=== PATIENT | female | born 1960 | race African-American/Black ===

== ENCOUNTER 2025-04-01 18:25 | Inpatient (IN) | payer MEDICARE, MEDICAID, SELFPAY ==
--- NOTE | 2025-04-01 | ECG_ITS ---
Test Reason : ASSESS QT Blood Pressure : */* mmHG Vent. Rate : 87 BPM Atrial Rate : 87 BPM P-R Int : 160 ms QRS Dur : 90 ms QT Int : 380 ms P-R-T Axes : 33 2 3 degrees QTcB Int : 457 ms Normal sinus rhythm Normal ECG No previous ECGs available Referred By: Chris Garcia Electronically Signed By: DOROTHY COLÓN MD
[2025-04-01 18:37] VITALS: BP 110/82; PULSE 110; O2SAT 95
[2025-04-01 18:38] VITALS: BP 97/56; PULSE 92; RESP 18; TEMP 36.2; O2SAT 96; BMI 28.6
--- NOTE | 2025-04-01 18:41 | MHC.CARE ---
CARE Team received a call from [facility] crisis (Ryan) who reports that Pt was assessed in the community today with a dispo of IPLOC. [facility] reports that Pt resides in a [facility] located in [place] and presents with psychosis, word salad, agiatation/aggression and inability to care. [facility] reports that Pt has been talking in a demonic voice which has actually injured her vocal cords and believes that devils are coming to kill her. [facility] reports that Pt has been verbally aggressive and threatening staff/residents at the and that it appears that Pt missed her last haldol injection. Possible dx of dementia, however [facility] is unsure. [facility] will fax the assessment when complete.
--- NOTE | 2025-04-01 20:09 | ED_ITS ---
HPI - Psych General Chief Complaint: Psychiatric Symptoms Stated Complaint: decompensating mental health Time Seen by Provider: 04/01/25 19:06 History of Present Illness ED Provider: Chris Garcia MD HPI Narrative: [age] female from correction and we will Howard him. She is a poor historian but does acknowledge auditory hallucinations that are non commanding. No SI or HI. She was sent for ?decompensated mental health?. Per triage note the EMS reported that is staff said that ?she believes she is the devil?. Chronic schizoaffective disorder, dementia. She denies any active medical illness or symptoms right now no recent injuries reported Related Data Home Medications ?Medication ?Instructions ?Recorded ?Confirmed acetaminophen 325 mg tablet 650 mg PO Q6H PRN Fever Or Pain 04/02/25 04/02/25 albuterol sulfate 90 mcg/actuation 180 mcg inhalation Q4H PRN SOB 04/02/25 04/02/25 breath activated powder inhaler,sensor aspirin 81 mg tablet 81 mg PO DAILY 04/02/25 04/02/25 benztropine 1 mg tablet 1 mg PO BID 04/02/25 04/02/25 cholecalciferol (vitamin D3) 25 25 mcg PO DAILY 04/02/25 04/02/25 mcg (1,000 unit) tablet clonazepam 0.5 mg tablet 0.5 mg PO DAILY PRN Anxiety 04/02/25 04/02/25 fluticasone furoate 100 1 inh inhalation DAILY MRX1 04/02/25 04/02/25 mcg-vilanterol 25 mcg/dose inhalation powder (Breo Ellipta) haloperidol decanoate 100 mg/mL 100 mg IM Q3W 04/02/25 04/02/25 intramuscular solution melatonin 10 mg capsule 10 mg PO BEDTIME Insomnia 04/02/25 04/02/25 nitrofurantoin 100 mg PO DAILY 04/02/25 04/02/25 monohydrate/macrocrystals 100 mg capsule omeprazole 20 mg capsule,delayed 20 mg PO DAILY 04/02/25 04/02/25 release oxybutynin chloride 10 mg 10 mg PO DAILY 04/02/25 04/02/25 tablet,extended release 24 hr risperidone 4 mg tablet 4 mg PO DAILY 04/02/25 04/02/25 sacubitril 24 mg-valsartan 26 mg 1 tab PO BID 04/02/25 04/02/25 tablet (Entresto) simvastatin 20 mg tablet 20 mg PO BEDTIME 04/02/25 04/02/25 Allergies Allergy/AdvReac Type Severity Reaction Status Date / Time erythromycin base Allergy Anaphylaxis Verified 04/01/25 18:45 [facility] Social History Social History Household Members: Other Household Members Other:: correction with one other person Housing: House Do you presently have visiting nurse or other home services: No Patient Tobacco Use Status: Current everyday Tobacco user Tobacco use type: Cigarette Cigarette Packs Per Day: 0.25 Cigarettes Per Day: 5.0 Smoked in Last 30 Days: Yes e-Cigarette/Vaping Use: Currently Using Patient Interested in Nicotine Replacement: Yes Patient Given Instructions on How to Stop Smoking: No Second Hand Smoke Exposure: No Currently Displaying Signs/Symptoms of Drug Intoxication Withdrawal: No Have you been hit, kicked, punched, or otherwise hurt by someone within the past year? If so, by whom?: No Do you feel safe in your current relationship?: No Current Relationship Is there a partner from a previous relationship who is making you feel unsafe now?: No Are you made to feel afraid or neglected: No Advance Directives: No Advance Directives Information Provided: No Do you have thoughts of harming others: None Do you have a plan to hurt others: No Plan Recently lost weight without trying: No How much weight loss: Not applicable Eating poorly because of decreased appetite: No Nutrition screen score: 0 Nutrition Risks: No Nutritional Risk Patient : No : No Poor oral hygiene: Yes Physical Exam 2 Vital Signs: Vital Signs: Last Vital Signs Temp 98.3 F 04/02/25 20:00 Pulse 65 04/02/25 20:00 Resp 18 04/02/25 20:00 BP 153/94 H 04/02/25 20:00 Pulse Ox 94 04/02/25 20:00 O2 Del Method Room Air 04/02/25 20:00 BMI result Body Mass Index 28.6 Const: Other: EXAM: Gen: Alert, awake, well appearing, well hydrated. Patient has some evidence of facial tardive dyskinesia. She is occasionally tangential and laughs inappropriately. She acknowledges auditory hallucinations but does not appear to be responding to them actively during my evaluation. She is clean and well- kempt her hair is done nicely and she is not profoundly disorganized or aggressive Head: Atraumatic Eyes: Anicteric, Normal conjunctiva. ENT: Moist mucosa, no pallor. ? Neck: Supple. Skin: ?No observable rash or bruising on exposed or examined skin Respiratory: Breathing comfortably, No distress.Clear to auscultation bilaterally, symmetric chest expansion, No wheeze, rales, ronchi. Cardiovascular: Regular rate and rhythm. No murmurs or rub. Well perfused periphery, warm extremities. No edema. ? Abdominal: No FOCAL TENDERNESS. Soft, no objective distension. No palpable masses or obvious organomegaly. ?No guarding, no rebound tenderness or other peritoneal findings. Obese : No flank tenderness. Neuro: Alert. Gross movement of all extremities intact. ? Psych: Calm. Cooperative. AH. Chronic auditory hallucinations not commanding. No SI or HI MSK: No grossly visible deformity. Vital signs: See flowsheet Course Course Course Narrative: 08:40I, Dr. Cardona have take over the care of this patient, I reviewed pertinent blood work and imaging, re-evaluated the patient when appropriate. I have ordered patient's regular medications upon request from Behavioral team. Medications Administered Generic Name Dose Route Start Last Admin Trade Name Freq PRN Reason Stop Dose Admin Acetaminophen 650 mg 04/02/25 13:28 04/02/25 20:55 Acetaminophen 325 Mg Tablet PO 650 mg Q6H PRN Administration Headache/Pain, Scale 1-10 Aspirin 81 mg 04/02/25 09:30 04/02/25 10:18 Aspirin 81 Mg Tab.Chew PO 81 mg DAILY KUSHAL Administration Atorvastatin Calcium 10 mg 04/02/25 09:30 04/02/25 10:18 Atorvastatin Calcium 10 Mg Tablet PO 10 mg DAILY KUSHAL Administration Benztropine Mesylate 1 mg 04/02/25 09:00 04/02/25 20:49 Benztropine Mesylate 1 Mg Tablet PO 1 mg BID KUSHAL Administration Fluticasone/Vilanterol 1 puff 04/02/25 10:00 04/02/25 13:51 Fluticasone/Vilanterol /25 Blst.W.Dev INHALE Not Given RDAILY KUSHAL Haloperidol 5 mg 04/02/25 15:15 04/03/25 00:27 Haloperidol 5 Mg Tablet PO 5 mg Q4H PRN Administration agitation Lorazepam 2 mg 04/02/25 15:15 04/03/25 00:27 Lorazepam 1 Mg Tablet PO 2 mg Q4H PRN Administration agitation Melatonin 9 mg 04/02/25 09:21 04/02/25 20:54 Melatonin 3 Mg Tablet PO 9 mg BEDTIME PRN Administration Insomnia Nitrofurantoin Macrocrystals 100 mg 04/02/25 10:00 04/02/25 10:18 Nitrofurantoin Monohyd/M-Cryst 100 Mg Capsule PO 100 mg DAILY KUSHAL Administration Omeprazole 20 mg 04/02/25 09:30 04/02/25 10:18 Omeprazole 20 Mg Capsule.Dr PO 20 mg DAILY@0630 KUSHAL Administration Oxybutynin Chloride 10 mg 04/02/25 09:00 04/02/25 10:17 Oxybutynin Chloride Er 5 Mg Tab.Er.24 PO 10 mg DAILY KUSHAL Administration Risperidone 4 mg 04/02/25 09:00 04/02/25 10:17 Risperidone 2 Mg Tablet PO 4 mg DAILY KUSHAL Administration Sacubitril/Valsartan 1 tab 04/02/25 09:00 04/02/25 20:49 Sacubitril/Valsartan 1 Tab Tablet PO 1 tab BID KUSHAL Administration Protocol Vitamin D 25 mcg 04/02/25 09:00 04/02/25 10:17 Cholecalciferol (Vitamin D3) 25 Mcg Tablet PO 25 mcg DAILY KUSHAL Administration Discontinued Medications Generic Name Dose Route Start Last Admin Trade Name Freq PRN Reason Stop Dose Admin Acetaminophen 650 mg 04/01/25 23:48 04/01/25 23:51 Acetaminophen 325 Mg Tablet PO 04/01/25 23:49 650 mg ONCE ONE Administration Ibuprofen 600 mg 04/01/25 21:24 04/01/25 21:32 Ibuprofen 600 Mg Tablet PO 04/01/25 21:25 600 mg ONCE ONE Administration Ibuprofen 600 mg 04/02/25 06:18 04/02/25 06:29 Ibuprofen 600 Mg Tablet PO 04/02/25 06:19 600 mg ONCE ONE Administration Melatonin 9 mg 04/02/25 00:02 04/02/25 00:15 Melatonin 3 Mg Tablet PO 04/02/25 00:03 9 mg ONCE ONE Administration Nicotine 14 mg 04/02/25 09:03 04/02/25 10:17 Nicotine 14 Mg Patch.Td24 TRANSDERMA 04/02/25 09:04 14 mg ONCE ONE Administration Medical Decision Making Medical Decision Making MDM Narrative: 64-year-old female with worsening psychiatric symptoms and auditory hallucinations. Patient has had a correction likely needs inpatient psychiatric No acute medical emergency identified on lab work or physical examination Differential Diagnosis Differential Diagnoses: The differential diagnosis associated with the presentation includes Decompensated psychiatric disorder, less likely encephalopathy metabolic derangement Consult Healthcare Provider Management of the patient was discussed with: Behavioral Health Provider (Care team) Lab Data [facility] Lab Attestation statement: I reviewed the patient's lab results. 04/01/25 20:51 04/01/25 20:51 Labs: Lab Results 04/01/25 04/01/25 Range/Units 20:51 20:52 WBC 5.8 (4.8-10.8) X10*3/uL RBC 3.91 L (4.20-5.50) X10*6/uL Hgb 11.7 L (12.0-16.0) g/dl Hct 35.2 L (37.0-47.0) % MCV 90.0 (80.0-98.0) fL MCH 29.9 (27.0-33.0) pg MCHC 33.2 (31.0-35.0) g/dl RDW 15.4 (11.0-16.0) % Plt Count 304 (160-400) X10*3/uL MPV 8.6 L (9.4-12.3) fL Immature Gran % (Auto) 0.3 (0.0-0.4) % Neut % (Auto) 50.0 (45-73) % Lymph % (Auto) 37.5 (20-40) % [place] % (Auto) 8.1 (2-11) % Eos % (Auto) 3.6 (0-4) % Baso % (Auto) 0.5 (0-2) % Lymph # (Auto) 2.2 (1.2-4.9) X10*3/uL [place] # (Auto) 0.5 (0.1-1.2) X10*3/uL Eos # (Auto) 0.2 (0.0-0.4) X10*3/uL Baso # (Auto) 0.0 (0.0-0.2) X10*3/uL Abs Immat Gran (auto) 0.02 (0.00-0.03) X10*3/uL Absolute Neuts (auto) 2.9 (2.0-8.3) x10*3/uL Absolute Nucleated RBC 0.000 (0.0-0.012) X10*3/uL Nucleated RBC % (auto) 0.0 (0.0-0.2) /100WBC Sodium 141 (135-145) mmol/L Potassium 4.3 (3.3-5.1) mmol/L Chloride 108 (96-108) mmol/L Carbon Dioxide 26 (22-29) mmol/L Anion Gap 11 L (12-20) BUN 9 (9-16) mg/dL Creatinine 0.75 (0.5-1.4) mg/dL Estim Creat Clear Calc 80.2 Estimated GFR > 60 Random Glucose 91 (60-115) mg/dL Calcium 9.3 (8.4-10.2) mg/dL Total Bilirubin 0.2 (0.0-1.0) mg/dL AST 40 H (5-31) U/L ALT 50 H (0-31) U/L Alkaline Phosphatase 70 (39-117) U/L Total Protein 7.0 (6.5-8.0) g/dL Albumin 4.5 (3.5-5.0) g/dL Urine Color Yellow Urine Appearance Clear Urine pH 6.5 (5.0-9.0) Ur Specific [place] 1.010 (1.005-1.025) Urine Protein Negative (Neg-Trace) mg/dL Urine Glucose (UA) Negative (Negative) mg/dL Urine Ketones Negative (Negative) mg/dL Urine Blood Negative (Negative) Urine Nitrite Negative (Negative) Ur Leukocyte Esterase Trace H (Negative) Urine RBC 0-2 (0-2) /HPF Urine WBC 0-5 (0-5) /HPF Ur Squamous Epith Cells 3-5 (0-2) /HPF Urine Bacteria None Seen (None Seen) Hyaline Casts 0-2 (0-2) /LPF Urine Opiates Screen Not Detected (Not Detect) Ur Buprenorphine Scrn Not Detected (Not Detect) ng/mL Ur Oxycodone Screen Not Detected (Not Detect) ng/mL Urine Methadone Screen Not Detected (Not Detect) ng/mL Urine Fentanyl Screen Not Detected (Not Detect) Ur Barbiturates Screen Not Detected (Not Detect) Ur Phencyclidine Scrn Not Detected (Not Detect) Ur Amphetamines Screen Not Detected (Not Detect) U Benzodiazepines Scrn Not Detected (Not Detect) Urine Cocaine Screen Not Detected (Not Detect) U Marijuana (THC) Screen Not Detected (Not Detect) Ethyl Alcohol 12 mg/dL Discharge Plan Discharge Clinical Impression: Psychiatric symptoms Patient Disposition: Admitted As Inpatient Discharge Date/Time: 04/02/25 14:56
--- NOTE | 2025-04-01 20:41 | PC.NURSE ---
patient at rest upon t/w's arrival to unit client awakened to ask about sisters phone call to inquire about status which t/w was unab;e to confirm regarding ability to confirm information, patient didnt seem to want to answer when t/w queried.
[2025-04-01 20:59] LABS: MANUAL DIFF FLAG NO
[2025-04-01 21:01] LABS: Basophils Percent Auto 0.5 % (0-2); Eosinophils Absolute Auto 0.2 X10*3/uL (0.0-0.4); Eosinophils Percent Auto 3.6 % (0-4); Hematocrit 35.2 % (37.0-47.0); Hemoglobin 11.7 g/dl (12.0-16.0); Imm Gran Abs Auto 0.02 X10*3/uL (0.00-0.03); Imm Gran Pct Auto 0.3 % (0.0-0.4); Lymphocytes Absolute Auto 2.2 X10*3/uL (1.2-4.9); Lymphocytes Percent Auto 37.5 % (20-40); Mean Corpuscular HGB Conc 33.2 g/dl (31.0-35.0); Mean Corpuscular Hemoglobin 29.9 pg (27.0-33.0); Mean Platelet Volume 8.6 fL (9.4-12.3); Monocytes Absolute Auto 0.5 X10*3/uL (0.1-1.2); Monocytes Percent Auto 8.1 % (2-11); Neutrophils Absolute Auto 2.9 x10*3/uL (2.0-8.3); Platelet Count 304 X10*3/uL (160-400); Red Blood Count 3.91 X10*6/uL (4.20-5.50); Red Cell Distribution Width 15.4 % (11.0-16.0); White Blood Count 5.8 X10*3/uL (4.8-10.8)
[2025-04-01 21:10] LABS: Appearance Urine Clear; Color Urine Yellow; Glucose Urine UA Negative (Negative); Leukocyte Esterase Urine Trace (Negative); Nitrite Urine Negative (Negative); PH 6.5 (5.0-9.0); UMIC TRIGGER UA YES; Urine Blood Negative (Negative); Urine Ketones Negative (Negative); Urine Protein Negative (Neg-Trace)
[2025-04-01 21:16] LABS: Alanine Aminotransferase 50 U/L (0-31); Albumin Level 4.5 g/dL (3.5-5.0); Alkaline Phosphatase 70 U/L (39-117); Anion Gap 11 (12-20); Aspartate Amino Transferase 40 U/L (5-31); Bilirubin Total 0.2 mg/dL (0.0-1.0); Blood Urea Nitrogen 9 mg/dL (9-16); Calcium 9.3 mg/dL (8.4-10.2); Carbon Dioxide 26 mmol/L (22-29); Chloride 108 mmol/L (96-108); Creatinine Clr Calc Pharmacy 80.2; Estimated Glomerular Filt Rate > 60; Ethanol 12 mg/dL; Glucose Random 91 mg/dL (60-115); Potassium 4.3 mmol/L (3.3-5.1); Sodium 141 mmol/L (135-145)
[2025-04-01 21:21] LABS: Amphetamine Screen Urine Not Detected (Not Detect); Barbiturates, Urine Not Detected (Not Detect); Benzodiazepines Screen Urine Not Detected (Not Detect); Buprenorphine Scr Not Detected (Not Detect); Cannabinoid Screen Urine Not Detected (Not Detect); Cocaine Screen Urine Not Detected (Not Detect); Fentanyl, urine Not Detected (Not Detect); Methadone Screen, Urine Not Detected (Not Detect); Opiate Screen Urine Not Detected (Not Detect); Oxycodone Screen Urine Not Detected (Not Detect); Phencyclidine Screen Urine Not Detected (Not Detect)
[2025-04-01] MEDS: Ibuprofen 600 MG TABLET PO (21:32)
[2025-04-01 21:40] LABS: Bacteria Urine None Seen (None Seen); Hyaline Casts Urine 0-2 /LPF (0-2); RBC Urine 0-2 /HPF (0-2); WBC Urine 0-5 /HPF (0-5)
[2025-04-01] MEDS: Acetaminophen 325 MG TABLET 650 MG PO (23:51)
[2025-04-02] MEDS: Melatonin 3 MG TABLET 9 MG PO ×2 (00:15→20:54)
--- NOTE | 2025-04-02 01:27 | PC.NURSE ---
spoke to sister who is (per sister) HCP and POA asked about disposition and left phone number Mary Liu [phone]
--- NOTE | 2025-04-02 03:53 | PC.NURSE ---
client experiencing broken sleep tonight
[2025-04-02 05:03] VITALS: BP 142/92; PULSE 90; RESP 18; TEMP 36.6; O2SAT 98
--- NOTE | 2025-04-02 05:36 | PC.NURSE ---
patient singing then requesting tea
[2025-04-02] MEDS: Ibuprofen 600 MG TABLET PO (06:29)
--- NOTE | 2025-04-02 08:28 | PC.NURSE ---
Patient soiled self, staff helped patient to bathroom, patient refused a shower but will use wash cloth with body wash to clean self up. Patient repeatidly asking to go home and states she does not want to stay here. Staff helped patient get a list of phone numbers from her bag, redirectable, calm and cooperative at this time
--- NOTE | 2025-04-02 09:13 | PHA.MEDREC ---
Pharmacy Consult ? Medication Reconciliation Pharmacy has reviewed the medication reconciliation done by nursing.
--- NOTE | 2025-04-02 09:21 | PC.NURSE ---
Spoke with Charleen Avalos, sas statistical programmer from [facility], patient last got IM injection of haloperidol dec 100 mg on 03/18/25
[2025-04-02 10:17] VITALS: BP 142/92
[2025-04-02] MEDS: oxyBUTYnin chloride ER 5 MG TAB.ER.24 10 MG PO (10:17)
[2025-04-02] MEDS: Nicotine 14 MG PATCH.TD24 TRANSDERMA (10:17)
[2025-04-02] MEDS: Cholecalciferol (Vitamin D3) 25 MCG TABLET PO (10:17)
[2025-04-02] MEDS: Sacubitril/Valsartan 24/26 1 TAB TABLET PO ×2 (10:17→20:49)
[2025-04-02] MEDS: risperiDONE 2 MG TABLET 4 MG PO (10:17)
[2025-04-02] MEDS: Atorvastatin Calcium 10 MG TABLET PO (10:18)
[2025-04-02] MEDS: Nitrofurantoin Monohyd/M-Cryst 100 MG CAPSULE PO (10:18)
[2025-04-02] MEDS: Benztropine Mesylate 1 MG TABLET PO ×2 (10:18→20:49)
[2025-04-02] MEDS: Omeprazole 20 MG CAPSULE.DR PO (10:18)
[2025-04-02] MEDS: Aspirin 81 MG TAB.CHEW PO (10:18)
--- NOTE | 2025-04-02 11:34 | PC.NURSE ---
Sister on the phone (cuba [phone]), states her outpatient psychiatrist wanted to increase her sisters dosages of psych meds after a zoom appointment yesteday, sister states she does not want any of the new orders given until patient is seen by [facility] psychiatry during admission
[2025-04-02 14:32] VITALS: BP 154/88; PULSE 90; RESP 16; TEMP 36.4; O2SAT 96
[2025-04-02 15:00] VITALS: BMI 28.0
[2025-04-02 16:00] VITALS: BP 155/90; PULSE 95; TEMP 36.4; O2SAT 95
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
[2025-04-02 20:00] VITALS: BP 153/94; PULSE 65; RESP 18; TEMP 36.8; O2SAT 94
[2025-04-02] MEDS: Acetaminophen 325 MG TABLET 650 MG PO (20:55)
[2025-04-03] MEDS: LORazepam 1 MG TABLET 2 MG PO ×3 (00:27→20:43)
[2025-04-03] MEDS: HaloperidoL 5 MG TABLET PO ×3 (00:27→20:43)
[2025-04-03] MEDS: Omeprazole 20 MG CAPSULE.DR PO (06:07)
[2025-04-03 08:08] VITALS: BP 117/61; PULSE 81; TEMP 36.6; O2SAT 94
[2025-04-03 09:10] LABS: Estimated Average Glucose 126 mg/dL; Hemoglobin A1C 149.5112 umol/L
[2025-04-03 09:20] LABS: Alanine Aminotransferase 50 U/L (0-31); Albumin Level 4.3 g/dL (3.5-5.0); Alkaline Phosphatase 73 U/L (39-117); Anion Gap 12 (12-20); Aspartate Amino Transferase 32 U/L (5-31); Bilirubin Total 0.2 mg/dL (0.0-1.0); Blood Urea Nitrogen 14 mg/dL (9-16); Calcium 10.1 mg/dL (8.4-10.2); Carbon Dioxide 27 mmol/L (22-29); Chloride 107 mmol/L (96-108); Cholesterol 162 mg/dL (<200); Creatinine Clr Calc Pharmacy 86.3; Estimated Glomerular Filt Rate > 60; Glucose Random 125 mg/dL (60-115); HDL Cholesterol 45 mg/dL (>40); LDL Cholesterol Calculated 98 mg/dL (<100); Potassium 4.6 mmol/L (3.3-5.1); Sodium 141 mmol/L (135-145); Total Protein 6.9 g/dL (6.5-8.0); Triglycerides 96 mg/dL (<150)
[2025-04-03] MEDS: risperiDONE 2 MG TABLET 4 MG PO (09:27)
[2025-04-03 09:28] VITALS: BP 120/68
[2025-04-03] MEDS: Sacubitril/Valsartan 24/26 1 TAB TABLET PO ×2 (09:28→20:43)
[2025-04-03] MEDS: Benztropine Mesylate 1 MG TABLET PO ×2 (09:28→20:44)
[2025-04-03] MEDS: oxyBUTYnin chloride ER 5 MG TAB.ER.24 10 MG PO (09:29)
[2025-04-03] MEDS: Nitrofurantoin Monohyd/M-Cryst 100 MG CAPSULE PO (09:30)
[2025-04-03] MEDS: Aspirin 81 MG TAB.CHEW PO (09:30)
[2025-04-03] MEDS: Cholecalciferol (Vitamin D3) 25 MCG TABLET PO (09:30)
[2025-04-03] MEDS: Atorvastatin Calcium 10 MG TABLET PO (09:30)
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
[2025-04-03] MEDS: Fluticasone/Vilanterol 100/25 BLST.W.DEV 1 PUFF INHALE (11:28)
[2025-04-03] MEDS: Acetaminophen 325 MG TABLET 650 MG PO ×2 (12:58→20:44)
[2025-04-03 20:00] VITALS: BP 164/121; PULSE 100; RESP 16; TEMP 36.4; O2SAT 97
[2025-04-03 20:43] VITALS: BP 164/121
[2025-04-03] MEDS: Nicotine Polacrilex Lozenge 4 MG LOZENGE BUCCAL (21:15)
[2025-04-04] MEDS: Nicotine Polacrilex Lozenge 4 MG LOZENGE BUCCAL ×2 (05:20→10:31)
[2025-04-04] MEDS: Omeprazole 20 MG CAPSULE.DR PO (06:17)
[2025-04-04] MEDS: risperiDONE 2 MG TABLET 4 MG PO (08:24)
[2025-04-04] MEDS: Fluticasone/Vilanterol 100/25 BLST.W.DEV 1 PUFF INHALE (08:24)
[2025-04-04 08:25] VITALS: BP 121/88
[2025-04-04] MEDS: Sacubitril/Valsartan 24/26 1 TAB TABLET PO ×2 (08:25→20:15)
[2025-04-04] MEDS: oxyBUTYnin chloride ER 5 MG TAB.ER.24 10 MG PO (08:25)
[2025-04-04] MEDS: Benztropine Mesylate 1 MG TABLET PO ×2 (08:25→20:15)
[2025-04-04] MEDS: Cholecalciferol (Vitamin D3) 25 MCG TABLET PO (08:25)
[2025-04-04] MEDS: Nitrofurantoin Monohyd/M-Cryst 100 MG CAPSULE PO (08:26)
[2025-04-04] MEDS: Atorvastatin Calcium 10 MG TABLET PO (08:26)
[2025-04-04] MEDS: Aspirin 81 MG TAB.CHEW PO (08:26)
[2025-04-04] MEDS: Acetaminophen 325 MG TABLET 650 MG PO ×3 (08:26→21:01)
--- NOTE | 2025-04-04 08:32 | HO.PSYCHPN ---
Subjective Subjective Date of Service: 04/04/25 Reason For Visit: manic Interim History: Met with patient; discussed with team Patient remains calm, pleasant and cooperative; in organized behavior with good impulse control; seems to be at baseline. She remains focused on when she can discharge but accepts that this will be best discussed with her outpatient team on Saturday. She does not want to miss her appointment to get her dentures. Denies psychiatric symptoms; Remains frequently talking to herself and internally preoccupied. Patient's brother came for a visit and reports that patient appears to be at her baseline. Mental Status Exam Mental Status Exam Narrative: Pt is alert and oriented; behavior is cooperative, friendly and calm; patient is not in distress; dressed in casual attire with adequate hygiene; mood is described as good and affect congruent; eye contact appropriate; Speech is normal rate, volume and prosody and not pressured; no psychomotor agitation/retardation present; thought process is goal directed; Thought content is on discharge, not missing outpatient appointments; otherwise pertinent to relevant topics and without any delusional content, paranoid ideations or grandiosity; denies any SI/HI. Denies AVH however patient clearly internally preoccupied and having conversations with herself summary Patients insight and judgment impaired but at baseline. Diagnostics Vital Signs (24Hr): Vital Signs - 24 hr 04/03/25 09:28 04/03/25 20:00 04/03/25 20:43 Temperature 97.5 F Pulse Rate 100 Respiratory Rate 16 Blood Pressure 120/68 164/121 H 164/121 H Pulse Oximetry 97 Oxygen Delivery Method Room Air 04/04/25 08:25 Temperature Pulse Rate Respiratory Rate Blood Pressure 121/88 Pulse Oximetry Oxygen Delivery Method BMI result Body Mass Index 28.0 Labs 04/01/25 20:51 04/03/25 08:15 Labs: Laboratory Results - last 48 hr 04/03/25 08:15 Sodium 141 Potassium 4.6 Chloride 107 Carbon Dioxide 27 Anion Gap 12 BUN 14 Creatinine 0.69 Estim Creat Clear Calc 86.3 Estimated GFR > 60 Random Glucose 125 H Estimat Average Glucose 126 Hemoglobin A1c % 6.0 Calcium 10.1 D Total Bilirubin 0.2 AST 32 H ALT 50 H Alkaline Phosphatase 73 Total Protein 6.9 Albumin 4.3 Triglycerides 96 Cholesterol 162 LDL Cholesterol, Calc 98 HDL Cholesterol 45 Medications Medications Current Medications Acetaminophen (Acetaminophen 325 Mg Tablet) 650 mg PO Q6H PRN PRN Reason: Headache/Pain, Scale 1-10 Last Admin: 04/04/25 08:26 Dose: 650 mg Al Hydroxide/Mg Hydroxide (Magnesium Hydrox/Alum Hydrox 30 Ml Oral.Susp) 30 ml PO Q6H PRN PRN Reason: Heartburn/Nausea Albuterol Sulfate (Albuterol Sulfate 90 Mcg 8 Gm Inhaler) 2 puff INHALE Q4H PRN PRN Reason: Shortness of Breath Aspirin (Aspirin 81 Mg Tab.Chew) 81 mg PO DAILY [facility] Last Admin: 04/04/25 08:26 Dose: 81 mg Atorvastatin Calcium (Atorvastatin Calcium 10 Mg Tablet) 10 mg PO DAILY [facility] Last Admin: 04/04/25 08:26 Dose: 10 mg Benztropine Mesylate (Benztropine Mesylate 1 Mg Tablet) 1 mg PO BID [facility] Last Admin: 04/04/25 08:25 Dose: 1 mg Clonazepam (Clonazepam 0.5 Mg Tablet) 0.5 mg PO DAILY PRN PRN Reason: Anxiety Fluticasone/Vilanterol (Fluticasone/Vilanterol 100/25 Blst.W.Dev) 1 puff INHALE RDAILY [facility] Last Admin: 04/04/25 08:24 Dose: 1 puff Haloperidol (Haloperidol 5 Mg Tablet) 5 mg PO Q4H PRN PRN Reason: agitation Last Admin: 04/03/25 20:43 Dose: 5 mg Haloperidol Decanoate (Haloperidol Decanoate 50 Mg/Ml Vial) 100 mg IM Q21D [facility] Lorazepam (Lorazepam 1 Mg Tablet) 2 mg PO Q4H PRN PRN Reason: agitation Last Admin: 04/03/25 20:43 Dose: 2 mg Magnesium Hydroxide (Milk Of Magnesia 30 Ml Oral.Susp) 30 ml PO DAILY PRN PRN Reason: Constipation Melatonin (Melatonin 3 Mg Tablet) 9 mg PO BEDTIME PRN PRN Reason: Insomnia Last Admin: 04/02/25 20:54 Dose: 9 mg Nicotine (Nicotine 21 Mg Patch.Td24) 21 mg TRANSDERMA DAILY PRN PRN Reason: smoking cessation Nicotine Polacrilex (Nicotine Polacrilex Lozenge 4 Mg Lozenge) 4 mg BUCCAL Q2H PRN PRN Reason: Nicotine Cravings Last Admin: 04/04/25 05:20 Dose: 4 mg Nitrofurantoin Macrocrystals (Nitrofurantoin Monohyd/M-Cryst 100 Mg Capsule) 100 mg PO DAILY [facility] Last Admin: 04/04/25 08:26 Dose: 100 mg Omeprazole (Omeprazole 20 Mg Capsule.Dr) 20 mg PO DAILY@0630 [facility] Last Admin: 04/04/25 06:17 Dose: 20 mg Oxybutynin Chloride (Oxybutynin Chloride Er 5 Mg Tab.Er.24) 10 mg PO DAILY [facility] Last Admin: 04/04/25 08:25 Dose: 10 mg Risperidone (Risperidone 2 Mg Tablet) 4 mg PO DAILY [facility] Last Admin: 04/04/25 08:24 Dose: 4 mg Sacubitril/Valsartan (Sacubitril/Valsartan 1 Tab Tablet) 1 tab PO BID [facility]; Protocol Last Admin: 04/04/25 08:25 Dose: 1 tab Trazodone HCl (Trazodone Hcl 50 Mg Tablet) 50 mg PO BEDTIME MRX1 PRN PRN Reason: Insomnia Vitamin D (Cholecalciferol (Vitamin D3) 25 Mcg Tablet) 25 mcg PO DAILY [facility] Last Admin: 04/04/25 08:25 Dose: 25 mcg Allergies Allergies Allergy/AdvReac Type Severity Reaction Status Date / Time erythromycin base Allergy Anaphylaxis Verified 04/01/25 18:45 Assessment & Plan Assessment & Plan (1) Schizoaffective disorder, bipolar type: Status: Acute Code(s): F25.0 - Schizoaffective disorder, bipolar type (2) TBI (traumatic brain injury): Status: Acute Code(s): S06.9XAA - Unspecified intracranial injury with loss of consciousness status unknown, initial encounter Plan Patient is a 64-year-old female with history of schizoaffective disorder bipolar type, COPD, CHF, hypertension, overactive bladder, TBI with healthcare proxy/guardian who lives in a alf who presents for manic and threatening behaviors. Per ED notes, patient became widely psychotic and disorganized, not making sense, highly agitated and threatening both staff and peers at the alf. On admission, it seems that manic episode has resolved and patient pleasant, cooperative and overall organized speech and behavior. She says she is not sure why she is at the hospital and unaware of circumstances even after documentation writer explains; she is amenable to treatment, but Hoping to go home soon. Patient denies any drug or alcohol use saying she is sober and asks if there will be any AA meetings and asks if she can have access to the big book... She denies any AVH, though frequently observed talking to herself and responding to internal stimuli. Formulation/clinical reasoning: Patient has history of significant psychotic and manic behaviors and is recently recovering from a manic episode. At this time, on admission, it seems that guadalupe has subsided and patient is approaching baseline. Will continue to monitor but if she remains in stable, organized behavior and speech will look towards discharge home. Need to gather further collateral. Hospital course: 04/04 Patient remains calm, pleasant and cooperative; in organized behavior with good impulse control; seems to be at baseline. She remains focused on when she can discharge but accepts that this will be best discussed with her outpatient team on Saturday. She does not want to miss her appointment to get her dentures. Denies psychiatric symptoms; Remains frequently talking to herself and internally preoccupied. Patient's brother came for a visit and reports that patient appears to be at her baseline. -if remains stable will coordinate with social work and outpatient team dispo planning Plan: CV Q 15 minute checks Continue home medication P.r.n. Haldol for agitation Patient educated on: diagnosis Informed Consent: understands and does not understand Reason for continued inpatient stay Substantial Risk for: stable for discharge and rapid decompensation Time Spent With Patient Time: Total time managing care of this patient today ____ minutes.
[2025-04-04 08:54] VITALS: BP 121/88; PULSE 105; TEMP 36.3; O2SAT 97
[2025-04-04] MEDS: HaloperidoL 5 MG TABLET PO ×2 (15:01→23:51)
[2025-04-04] MEDS: LORazepam 1 MG TABLET 2 MG PO ×2 (15:01→23:51)
[2025-04-04 20:00] VITALS: BP 123/86; PULSE 105; TEMP 36.4; O2SAT 97
[2025-04-04 20:15] VITALS: BP 123/86
[2025-04-05] MEDS: Melatonin 3 MG TABLET 9 MG PO ×2 (02:59→20:34)
[2025-04-05] MEDS: Acetaminophen 325 MG TABLET 650 MG PO ×2 (02:59→09:46)
[2025-04-05] MEDS: Omeprazole 20 MG CAPSULE.DR PO (06:11)
[2025-04-05 08:03] VITALS: BP 115/72; PULSE 90; TEMP 36.2; O2SAT 97
[2025-04-05 09:21] VITALS: BP 115/72
[2025-04-05] MEDS: Benztropine Mesylate 1 MG TABLET PO ×2 (09:21→20:33)
[2025-04-05] MEDS: oxyBUTYnin chloride ER 5 MG TAB.ER.24 10 MG PO (09:21)
[2025-04-05] MEDS: Fluticasone/Vilanterol 100/25 BLST.W.DEV 1 PUFF INHALE (09:21)
[2025-04-05] MEDS: Sacubitril/Valsartan 24/26 1 TAB TABLET PO ×2 (09:21→20:33)
[2025-04-05] MEDS: risperiDONE 2 MG TABLET 4 MG PO (09:21)
[2025-04-05] MEDS: Nitrofurantoin Monohyd/M-Cryst 100 MG CAPSULE PO (09:22)
[2025-04-05] MEDS: Cholecalciferol (Vitamin D3) 25 MCG TABLET PO (09:22)
[2025-04-05] MEDS: Aspirin 81 MG TAB.CHEW PO (09:22)
[2025-04-05] MEDS: Atorvastatin Calcium 10 MG TABLET PO (09:22)
[2025-04-05] MEDS: Nicotine Polacrilex 2 MG GUM 4 MG BUCCAL (09:29)
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
[2025-04-05] MEDS: HaloperidoL 5 MG TABLET PO ×2 (13:01→21:14)
[2025-04-05] MEDS: LORazepam 1 MG TABLET 2 MG PO ×2 (13:03→21:14)
[2025-04-05] MEDS: Gabapentin 300 MG CAPSULE PO ×2 (14:31→20:34)
[2025-04-05 19:47] VITALS: BP 118/71; PULSE 84; TEMP 36.4; O2SAT 96
[2025-04-05] MEDS: traZODone HCL 50 MG TABLET PO (20:34)
[2025-04-05] MEDS: Albuterol Sulfate 90 MCG 8 GM INHALER 2 PUFF INHALE (20:37)
[2025-04-06] MEDS: HaloperidoL 5 MG TABLET PO ×3 (00:48→21:15)
[2025-04-06] MEDS: LORazepam 1 MG TABLET 2 MG PO ×3 (00:48→21:15)
[2025-04-06] MEDS: Omeprazole 20 MG CAPSULE.DR PO (05:41)
[2025-04-06] MEDS: Acetaminophen 325 MG TABLET 650 MG PO ×2 (05:41→21:19)
[2025-04-06 07:54] VITALS: BP 116/63; PULSE 97; RESP 18; TEMP 36.3; O2SAT 95
[2025-04-06] MEDS: Atorvastatin Calcium 10 MG TABLET PO (08:09)
[2025-04-06] MEDS: risperiDONE 2 MG TABLET 4 MG PO (08:09)
[2025-04-06] MEDS: Aspirin 81 MG TAB.CHEW PO (08:10)
[2025-04-06] MEDS: Sacubitril/Valsartan 24/26 1 TAB TABLET PO ×2 (08:10→21:15)
[2025-04-06] MEDS: Benztropine Mesylate 1 MG TABLET PO ×2 (08:10→21:15)
[2025-04-06] MEDS: Cholecalciferol (Vitamin D3) 25 MCG TABLET PO (08:11)
[2025-04-06] MEDS: Nitrofurantoin Monohyd/M-Cryst 100 MG CAPSULE PO (08:11)
[2025-04-06] MEDS: Gabapentin 300 MG CAPSULE PO ×3 (08:11→21:15)
[2025-04-06] MEDS: oxyBUTYnin chloride ER 5 MG TAB.ER.24 10 MG PO (08:12)
[2025-04-06] MEDS: Fluticasone/Vilanterol 100/25 BLST.W.DEV 1 PUFF INHALE (08:16)
[2025-04-06] MEDS: Nicotine Polacrilex 2 MG GUM 4 MG BUCCAL ×2 (11:23→16:54)
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
[2025-04-06 16:03] VITALS: BP 97/73; PULSE 108
[2025-04-06 19:50] VITALS: BP 128/75; PULSE 110; TEMP 36.7; O2SAT 95
[2025-04-06] MEDS: traZODone HCL 50 MG TABLET PO (21:26)
[2025-04-07] MEDS: Omeprazole 20 MG CAPSULE.DR PO (06:12)
[2025-04-07] MEDS: Nicotine Polacrilex 2 MG GUM 4 MG BUCCAL ×5 (06:12→21:21)
[2025-04-07 07:52] VITALS: BP 133/67; PULSE 95; RESP 18; TEMP 36.4; O2SAT 97
[2025-04-07] MEDS: Fluticasone/Vilanterol 100/25 BLST.W.DEV 1 PUFF INHALE (08:04)
[2025-04-07] MEDS: Benztropine Mesylate 1 MG TABLET PO ×2 (08:05→21:04)
[2025-04-07] MEDS: Nitrofurantoin Monohyd/M-Cryst 100 MG CAPSULE PO (08:05)
[2025-04-07] MEDS: Gabapentin 300 MG CAPSULE PO ×3 (08:05→21:04)
[2025-04-07] MEDS: Sacubitril/Valsartan 24/26 1 TAB TABLET PO ×2 (08:05→21:03)
[2025-04-07] MEDS: oxyBUTYnin chloride ER 5 MG TAB.ER.24 10 MG PO (08:05)
[2025-04-07] MEDS: risperiDONE 3 MG TABLET 6 MG PO (08:05)
[2025-04-07] MEDS: Cholecalciferol (Vitamin D3) 25 MCG TABLET PO (08:05)
[2025-04-07] MEDS: Aspirin 81 MG TAB.CHEW PO (08:06)
[2025-04-07] MEDS: Atorvastatin Calcium 10 MG TABLET PO (08:06)
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
[2025-04-07] MEDS: LORazepam 1 MG TABLET 2 MG PO (13:11)
[2025-04-07] MEDS: HaloperidoL 5 MG TABLET PO (13:11)
[2025-04-07 14:50] VITALS: BP 111/69; PULSE 101
[2025-04-07] MEDS: Propranolol HCL 10 MG TABLET PO (14:53)
[2025-04-07 20:00] VITALS: BP 107/64; PULSE 81; RESP 16; TEMP 36.6; O2SAT 95
[2025-04-08] MEDS: LORazepam 1 MG TABLET 2 MG PO (00:46)
[2025-04-08] MEDS: Melatonin 3 MG TABLET 9 MG PO (00:46)
[2025-04-08] MEDS: HaloperidoL 5 MG TABLET PO (00:47)
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
[2025-04-08] MEDS: Omeprazole 20 MG CAPSULE.DR PO (06:03)
[2025-04-08 07:00] VITALS: BMI 28.0
[2025-04-08 08:00] VITALS: BP 108/58; PULSE 83; RESP 16; TEMP 36.3; O2SAT 97
[2025-04-08] MEDS: risperiDONE 3 MG TABLET 6 MG PO (08:51)
[2025-04-08] MEDS: Gabapentin 300 MG CAPSULE PO (08:51)
[2025-04-08] MEDS: Atorvastatin Calcium 10 MG TABLET PO (08:51)
[2025-04-08] MEDS: Nitrofurantoin Monohyd/M-Cryst 100 MG CAPSULE PO (08:51)
[2025-04-08] MEDS: oxyBUTYnin chloride ER 5 MG TAB.ER.24 10 MG PO (08:51)
[2025-04-08 08:53] VITALS: BP 108/58
[2025-04-08] MEDS: Sacubitril/Valsartan 24/26 1 TAB TABLET PO (08:53)
[2025-04-08] MEDS: Benztropine Mesylate 1 MG TABLET PO (08:54)
[2025-04-08] MEDS: Aspirin 81 MG TAB.CHEW PO (08:54)
[2025-04-08] MEDS: Cholecalciferol (Vitamin D3) 25 MCG TABLET PO (08:54)
[2025-04-08] MEDS: Haloperidol Decanoate 50 MG/ML VIAL 100 MG IM (09:03)
[2025-04-08] MEDS: Fluticasone/Vilanterol 100/25 BLST.W.DEV 1 PUFF INHALE (09:11)
[2025-04-08] MEDS: Nicotine Polacrilex 2 MG GUM 4 MG BUCCAL ×2 (09:13→13:05)
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
== END 2025-04-08 14:25 | disposition other institution (70) | DRG 885 ==
LOC: HO.ED 22:25 → HO.PM5 04-02 13:38
PROVIDERS: Admitting Provider Psychiatry & Neurology Psychiatry; Emergency Provider Emergency Medicine; Visit Provider Psychiatry & Neurology Psychiatry
DX: F25.0 Schizoaffective disorder, bipolar type (principal); Z79.51 Long term (current) use of inhaled steroids; Z79.899 Other long term (current) drug therapy
CPT/HCPCS: 36415; 80053; 80061; 80307; 81001; 81003; 83036; 85025; 93005; 99285; J1631

== ENCOUNTER → 2025-04-01 21:36 | Outpatient (BNV) | payer MEDICARE, MEDICAID, SELFPAY | PROVIDERS: Emergency Provider Emergency Medicine; Visit Provider Internal Medicine Cardiovascular Disease | DX: Z13.6 Encounter for screening for cardiovascular disorders (principal) | CPT/HCPCS: 93010 ==

== ENCOUNTER → 2025-04-02 13:28 | Outpatient (BNV) | payer MEDICARE, MEDICAID, SELFPAY | PROVIDERS: Admitting Provider Psychiatry & Neurology Psychiatry; Emergency Provider Emergency Medicine; Visit Provider Psychiatry & Neurology Psychiatry | DX: F25.0 Schizoaffective disorder, bipolar type (principal); Z87.820 Personal history of traumatic brain injury | CPT/HCPCS: 90792 ==